=== PATIENT | male | born 1985 ===

== ENCOUNTER 2019-11-29 14:10 | Outpatient (REF) | payer SELFPAY ==
[2019-11-29 21:23] LABS: Hemoglobin A1C 5.4 % (3.8-5.6)
[2019-11-29 21:26] LABS: ALT 19 U/L (16-63); AST 24 U/L (15-37); Albumin 3.8 g/dL (3.4-5.0); Alkaline Phosphatase 58 U/L (46-116); Anion Gap 11.3 mmol/L (3-11); BUN 17 mg/dL (7-18); Bilirubin, Total 0.6 mg/dL (0.2-1.0); CO2 25.7 mmol/L (21.0-32.0); CREATININE 0.98 mg/dL (0.70-1.30); Calcium 9.2 mg/dL (8.5-10.1); Chloride 101 mmol/L (98-107); Glucose 88 mg/dL (74-106); Potassium 4.3 mmol/L (3.5-5.1); Sodium 138 mmol/L (136-145); Total Protein 7.7 g/dL (6.4-8.2)
[2019-11-29 21:39] LABS: Calculated LDL 84 mg/dL (<100); Cholesterol 156 mg/dL (<200); HDL Cholesterol 23 mg/dL (40-60); Triglyceride 249 mg/dL (<150)
== END 2019-11-29 14:30 ==
LOC: NCHCN 14:10
PROVIDERS: Visit Provider Nurse Practitioner Family
DX: R73.9 Hyperglycemia, unspecified (principal); E66.9 Obesity, unspecified; Z13.220 Encounter for screening for lipoid disorders
CPT/HCPCS: 80053; 80061; 83036